=== PATIENT | female | born 1960 | race Two or more races ===

== ENCOUNTER 2021-05-20 19:58 | Emergency (ER) | payer MEDICAID, OTHER ==
[~2021-05-20] VITALS: Ht 165.1 cm; Wt 79.4 kg
[2021-05-20 23:15] LABS: Basophils # (auto) 0 10 ^3/uL (0-0.2); Basophils % (auto) 0.6 % (0.0-2.0); Eosinophils # (auto) 0.1 10 ^3/uL (0-0.8); Eosinophils % (auto) 2.1 % (0.0-7.0); Hematocrit 38.5 % (36.0-46.0); Hemoglobin 12.9 g/dL (12.2-16.2); Lymphocytes # (auto) 1.5 10 ^3/uL (0.4-5.4); Mean Corpuscular Hemoglobin 31.1 pg (28.0-32.0); Mean Corpuscular Hgb Conc. 33.5 g/dL (32.0-36.0); Mean Corpuscular Volume 92.9 fL (80.0-100.0); Monocytes # (auto) 0.6 10 ^3/uL (0-1.3); Monocytes % (auto) 11.1 % (0.0-12.0); Neutrophils # (auto) 2.9 10 ^3/uL (1.6-8.6); Neutrophils % (auto) 57.2 % (37.0-80.0); Nucleated Red Blood Cells % 0.2 %; Red Blood Cells 4.14 10^6/uL (4.0-5.20); Red Cell Distribution Width 14.3 % (11.8-14.3); White Blood Cell 5.1 10^3/uL (4.4-10.8)
[2021-05-20 23:46] LABS: BUN/Creatinine Ratio 16.5
[2021-05-20 23:47] LABS: Bilirubin, Total 0.5 mg/dL (0.2-1.0); Calcium 8.3 mg/dL (8.5-10.1); Total Protein 8.2 g/dL (6.4-8.2)
[2021-05-20 23:48] LABS: Albumin 3.1 g/dL (3.4-5.0)
[2021-05-21] MEDS ORDERED: ACETAMINOPHEN 500 MG TAB PO ONE (02:15)
[2021-05-21] MEDS ORDERED: KETOROLAC TROMETH 60MG/2ML VIAL IM ONE (02:15)
[2021-05-21 05:32] VITALS: BP 123/79
[2021-05-21] MEDS ORDERED: predniSONE 20 MG TAB PO ONE (05:45)
== END 2021-05-21 06:29 | disposition home or self-care (01) ==
LOC: ER 19:58
DX: J18.9 Pneumonia, unspecified organism (principal); R05.9 Cough, unspecified; F17.210 Nicotine dependence, cigarettes, uncomplicated
CPT/HCPCS: 36415; 71045; 80053; 83735; 83880; 84484; 85025; 93005; 99285; J1885; J7030; J7512